=== PATIENT | male | born 1990 | race Two or more races ===

== ENCOUNTER 2023-05-04 16:37 | Emergency (ER) | payer OTHER ==
[2023-05-04 16:46] VITALS: BP 150/70; O2SAT 99
[2023-05-04 17:01] LABS: BILIRUBIN,URINE NEGATIVE (NEGATIVE); GLUCOSE, URINE (UA) NEGATIVE (NEGATIVE); KETONES,URINE (UA) TRACE mg/dL (NEGATIVE); LEUKOCYTE ESTERASE, URINE NEGATIVE (NEGATIVE); NITRITE,URINE NEGATIVE (NEGATIVE); OCCULT BLOOD,URINE NEGATIVE (NEGATIVE); PROTEIN,URINE NEGATIVE (NEGATIVE); UROBILINOGEN,URINE 0.2 (NORMAL) E.U./dL (NORMAL)
[2023-05-04 17:02] LABS: CLARITY,URINE CLEAR (CLEAR)
--- NOTE | 2023-05-04 17:17 | ED Physician Documentation ---
History of Present Illness - Stated complaint Stated Complaint: - Chief complaint Chief Complaint: General - History obtained from History obtained from: Patient - History of Present Illness Pain level max: 3 Pain level now: 1 - Additonal information Additional information: Patient is a 32-year-old male who presents to the emergency department stating that he had right testicular swelling last week, started doxycycline and states that the swelling is decreased but started to have pain today. He has an ultrasound scheduled for tonight but was told to come to the emergency department if he had pain. Nothing seems to make it better or worse. No change in sexual partners. No STI exposure. No penile discharge. No abdominal pain. No neck or back pain. No fevers. No chills. The pain is mostly dull, aching and in the right testicle. Review of Systems Constitutional: denies: Fever, Chills GI: denies: Vomiting, Diarrhea : denies: Dysuria, Frequency, Hesitancy Skin: denies: Rash PD PAST MEDICAL HISTORY - Past Medical History Past Medical History: No - Past Surgical History Past Surgical History: No - Allergies Allergies/Adverse Reactions: Allergies Allergy/AdvReac Type Severity Reaction Status Date / Time No Known Drug Allergies Allergy Verified 05/04/23 16:41 - Social History Does the pt smoke?: No Smoking Status: Never smoker Does the pt drink ETOH?: No Does the pt have substance abuse?: No - Immunizations Immunizations are current?: Yes - POLST Patient has POLST: No PD ED PE NORMAL - Vitals Vital signs reviewed: Yes - General General: Alert and oriented X 3, No acute distress - HEENT HEENT: Moist mucous membranes - Neck Neck: Supple, no meningeal sign - Abdomen Abdomen: Soft, Non tender, Non distended - Male Male : Other (Normal genitalia exam. Normal testicular lie. Normal-appearing scrotum. No tenderness. No penile discharge.) - Back Back: No CVA TTP, No spinal TTP - Derm Derm: Warm and dry - Neuro Neuro: Alert and oriented X 3 - Psych Psych: Normal mood, Normal affect Results - Vitals Vitals: Vital Signs - 24 hr 05/04/23 16:41 Temperature 36.5 C Heart Rate 60 Respiratory 16 Rate Blood Pressure 150/70 H O2 Saturation 99 Oxygen O2 Source Room air - Labs Labs: Laboratory Tests 05/04/23 16:53 Urine Color YELLOW Urine Clarity CLEAR Urine pH 6.0 Ur Specific [place] >=1.030 H Urine Protein NEGATIVE Urine Glucose (UA) NEGATIVE Urine Ketones TRACE Urine Occult Blood NEGATIVE Urine Nitrite NEGATIVE Urine Bilirubin NEGATIVE Urine Urobilinogen 0.2 (NORMAL) Ur Leukocyte Esterase NEGATIVE Ur Microscopic Review NOT INDICATED Urine Culture Comments NOT INDICATED - Rads (name of study) Testicular ultrasound Relevant Findings:: Final report received, See rad report PD Medical Decision Making - ED course Complexity details: reviewed results, re-evaluated patient, considered differential, d/w patient ED course: No acute abnormality on urinalysis or testicular ultrasound to explain his pain. Unclear etiology of symptoms. We will have him follow-up with a urologist for further care. Patient is well-appearing, nontoxic. Afebrile. No evidence of torsion or intermittent torsion. Symptoms not consistent with intermittent torsion. Patient counseled regarding signs and symptoms for which I believe and urgent re-evaluation would be necessary. Patient with good understanding of and agreement to plan and is comfortable going home at this time This document was made in part using voice recognition software. While efforts are made to proofread this document, sound alike and grammatical errors may occur. Departure - Departure Disposition: 01 Home, Self Care Clinical Impression: Testicular pain, right Condition: Good Instructions: ED Testicular Pain [facility] Follow-Up: Homer Bonilla MD [Provider Admit Priv/Credential] - Comments: The cause of your symptoms is unclear today. Your urinalysis is normal. Your ultrasound does not show any acute abnormalities. It is recommended you follow- up with urology for further care. You can call for an appointment in the [facility] and they will schedule your appointment. Please return if you worsen. Forms: PCP List Discharge Date/Time: 05/04/23 18:43
--- NOTE | 2023-05-04 19:03 | Ultrasound Report ---
PROCEDURE: Testicle w/Doppler INDICATIONS: testicular pain TECHNIQUE: Real-time scanning was performed of the scrotum and testicles, with image documentation. Color and p ulse Doppler interrogation was performed of both testicles. COMPARISON: None. FINDINGS: Right: Testicle is normal in size at 4.6 x 2.8 x 4.2 cm, and homogenous in echotexture. Epididymis is normal in overall size and morphology. No hydrocele. No varicoceles. Overlying scrotal skin is n ormal in thickness. Left: Testicle is normal in size at 4.1 x 2.0 x 2.8 cm, and homogeneous in echotexture. 1 cm epidid ymal cyst. Trace hydrocele. No varicoceles. Overlying scrotal skin is normal in thickness. Doppler: Color and pulse Doppler demonstrate normal and symmetric arterial flow in both testicles. IMPRESSION: No torsion at time of exam. Intermittent torsion cannot be excluded. Trace left hydrocele. Reviewed by: Kimberly Howell MD on 05/04/2023 7:01 PM PST Approved by: Kimberly Howell MD on 05/04/2023 7:01 PM PST Station ID: [id number]
[2023-05-04 20:43] LABS: CHLAMYDIA TRACHOMATIS DNA NEGATIVE (NEGATIVE); NEISSERIA GONORRHOEAE DNA NEGATIVE (NEGATIVE); TRICHOMONAS VAGINALIS DNA NEGATIVE (NEGATIVE)
== END 2023-05-04 18:43 | disposition home or self-care (01) ==
LOC: ED 16:37
DX: N50.811 Right testicular pain (principal)
CPT/HCPCS: 81001; 81003; 87086; 87491; 87591; 87661; 93975; 99283; 99284